=== PATIENT | female | born 1965 | race Two or more races ===

== ENCOUNTER 2018-12-30 06:15 | Emergency (ER) | payer SELFPAY ==
[~2018-12-30] VITALS: Ht 157.5 cm; Wt 81.8 kg
[2018-12-30] MEDS ORDERED: MORPHINE SULFATE 4 MG/ML SYRINGE IVP ONE (06:45)
[2018-12-30] MEDS ORDERED: KETAMINE HCL 50 MG/ML 10 ML VIAL IVP ONE (06:45)
[2018-12-30] MEDS ORDERED: SODIUM CHLORIDE 0.9% 1,000 ML IV ONE (06:45)
[2018-12-30 08:59] VITALS: BP 139/89
== END 2018-12-30 10:33 | disposition home or self-care (01) ==
LOC: EMS 06:15
DX: S82.842A Displaced bimalleolar fracture of left lower leg, initial encounter for closed fracture (principal); S93.05XA Dislocation of left ankle joint, initial encounter; X50.1XXA Overexertion from prolonged static or awkward postures, initial encounter; Y93.89 Activity, other specified; Y92.89 Other specified places as the place of occurrence of the external cause; Y99.8 Other external cause status
CPT/HCPCS: 27840; 73590; 73600; 96374; 99152; 99285; J2270; J3490; J7030